=== PATIENT | female | born 1955 | race Two or more races ===

== ENCOUNTER 2016-09-12 10:50 | Inpatient (IN) | payer OTHER ==
[~2016-09-12] VITALS: Ht 157.5 cm; Wt 109.6 kg
[2016-09-16] MEDS ORDERED: LOSA25TA PO (10:57)
[2016-09-16] MEDS ORDERED: LEVO100T5 PO (11:12)
[2016-09-16] MEDS ORDERED: FISH1000 PO (11:12)
[2016-09-16] MEDS ORDERED: ESSE250T PO (11:12)
[2016-09-16] MEDS ORDERED: CYAN1TAB24 PO (11:12)
[2016-09-16] MEDS ORDERED: VITA-136 PO (11:12)
[2016-09-16] MEDS ORDERED: VITA500C18 PO (11:12)
[2016-09-16] MEDS ORDERED: GLIP5TAB8 PO (11:12)
[2016-09-16] MEDS ORDERED: FENO145T2 PO (11:12)
[2016-09-16] MEDS ORDERED: METF850T PO (11:12)
[2016-09-16] MEDS ORDERED: NOVORP2 SQ (11:12)
[2016-09-16] MEDS ORDERED: PREN29TA PO (11:13)
[2016-09-16] MEDS ORDERED: FERR325C PO (11:13)
[2016-09-18] MEDS ORDERED: ceFAZolin 2 GM PREMIX 50 ML IV SCH (06:45)
[2016-09-18] MEDS ORDERED: SCOPOLAMINE 1.5 MG PATCH T-DERMAL SCH (06:45)
[2016-09-18] MEDS ORDERED: ONDANSETRON HCL 4 MG/2 ML VIAL IV PUSH SCH (06:45)
[2016-09-18] MEDS ORDERED: metroNIDAZOLE 500 MG INJ 100 ML IV SCH (06:45)
[2016-09-18] MEDS ORDERED: LACTATED RINGER'S 1000 ML IV PRN (06:45)
[2016-09-18] MEDS ORDERED: SODIUM CHLORID 0.9% 500 ML IV PRN (06:45)
[2016-09-18] MEDS ORDERED: POVIDONE IODINE 5% (ANTISEPSIS KIT) 4 APPLICATIONS EACH NARE PRN (06:45)
[2016-09-18] MEDS ORDERED: CHLORHEXIDINE GLUCONATE 2 % 1 PACK (2 CLOTHS) TOPICAL PRN (06:45)
[2016-09-18] MEDS ORDERED: ACETAMINOPHEN 1000 MG/100 ML VIAL IV SCH (06:45)
[2016-09-18] MEDS ORDERED: METOPROLOL TARTRATE 25 MG TAB PO PRN (06:45)
[2016-09-18] MEDS ORDERED: APREPITANT 40 MG CAP PO SCH (06:45)
[2016-09-18] MEDS ORDERED: INSULIN HUMAN REGULAR 1,000 UNITS/10 ML VIAL SQ PRN (06:45)
[2016-09-18] MEDS ORDERED: TAMO20TA6 PO (07:09)
[2016-09-18 07:13] VITALS: BP 149/69; PULSE 76; RESP 16; TEMP 98; O2SAT 98
[2016-09-18] MEDS ORDERED: MIDAZOLAM HCL 2 MG/2 ML VIAL ONE (08:38)
[2016-09-18] MEDS ORDERED: METOCLOPRAMIDE HCL 10 MG/2 ML VIAL ONE (08:38)
[2016-09-18] MEDS ORDERED: methylPREDNISolone SOD SUCC 125 MG/2 ML VIAL ONE (08:38)
[2016-09-18] MEDS ORDERED: FAMOTIDINE 20 MG/2 ML VIAL ONE (08:38)
[2016-09-18] MEDS ORDERED: BUPIVACAINE/EPINEPHRINE 0.25% 50 ML VIAL INFIL ONE (09:23)
[2016-09-18] MEDS ORDERED: METHYLENE BLUE 100 MG/10 ML VIAL NG ONE (09:42)
[2016-09-18] MEDS ORDERED: DEXTROSE 50% IN WATER 50 ML VIAL(D50) IV PUSH PRN (10:15)
[2016-09-18] MEDS ORDERED: diphenhydrAMINE HCL ELIXIR 12.5 MG/5 ML CUP PO PRN (10:15)
[2016-09-18] MEDS ORDERED: SODIUM CHLORIDE 0.9% FLUSH 10 ML FLUSH PRN (10:15)
[2016-09-18] MEDS ORDERED: ONDANSETRON HCL 4 MG/2 ML VIAL IV PRN (10:15)
[2016-09-18] MEDS ORDERED: diphenhydrAMINE HCL 50 MG/ML VIAL IV PRN (10:15)
[2016-09-18] MEDS ORDERED: ENALAPRILAT 1.25 MG/ML VIAL IV PUSH PRN (10:15)
[2016-09-18] MEDS ORDERED: NALOXONE HCL 0.4 MG/ML AMP IV PRN (10:15)
[2016-09-18] MEDS ORDERED: MORPHINE SULFATE 30 MG/30 ML PCA IV SCH (10:15)
[2016-09-18] MEDS ORDERED: ACETAMINOPHEN 325MG/HYDROcodone 7.5MG/15ML UDC PO PRN ×2 (10:15)
[2016-09-18] MEDS ORDERED: GLUCAGON 1 MG/ML VIAL OTHER PRN (10:15)
[2016-09-18] MEDS ORDERED: Post-op Orders (for Pharmacy) MISC OTHER ONE (10:15)
[2016-09-18] MEDS ORDERED: SUGAMMADEX SODIUM 200 MG/2 ML VIAL IV PUSH ONE ×2 (10:36)
[2016-09-18] MEDS ORDERED: fentaNYL CITRATE 250 MCG/5 ML AMP ONE (10:55)
[2016-09-18] MEDS ORDERED: *ONDANSETRON 4 MG VIAL PERIprocedural Use ONLY ONE (11:07)
[2016-09-18] MEDS: 1/2 NS + KCL 20 MEQ INJ 1,000 ML IV SCH ×2 (11:20→20:52)
[2016-09-18] MEDS ORDERED: *PROMETHAZINE 25 MG/ML VIAL PERIprocedural use ONLY ONE (11:27)
[2016-09-18] MEDS ORDERED: PROPOFOL 200 MG/20 ML AMP IV ONE (12:00)
[2016-09-18] MEDS ORDERED: ceFAZolin 2 GM/50 ML BAG IV ONE (12:00)
[2016-09-18] MEDS ORDERED: NEOSTIGMINE 3 MG/3 ML SYR IV ONE (12:00)
[2016-09-18] MEDS: RESP: ALBUTEROL 2.5 MG/3 ML NEB (SCH) INH ×3 (12:10→23:45)
[2016-09-18] MEDS ORDERED: *morphine SULFATE 8 MG/ML PERIprocedure ONLY ONE (12:31)
[2016-09-18] MEDS: METOCLOPRAMIDE HCL 10 MG/2 ML VIAL IV PUSH SCH ×2 (15:10→20:52)
[2016-09-18] MEDS: ENOXAPARIN SODIUM 40 MG/0.4 ML SYRINGE SQ SCH (15:15)
[2016-09-18] MEDS: metroNIDAZOLE 500 MG INJ 100 ML IV SCH ×2 (15:56→22:19)
[2016-09-18] MEDS ORDERED: DO NOT ADM ANY ANTICOAGULANT DRUGS PRN (16:00)
[2016-09-18 16:58] VITALS: BP 163/75; PULSE 85; RESP 16; TEMP 99.5; O2SAT 98
[2016-09-18] MEDS: INSULIN NovoLIN REGULAR SUPPLEMENTAL SCALE SQ SCH ×2 (17:58→22:21)
[2016-09-18 20:00] VITALS: BP 159/71; PULSE 83; RESP 18; TEMP 98.1; O2SAT 98
[2016-09-18] MEDS: SODIUM CHLORIDE 0.9% FLUSH 10 ML FLUSH IV FLUSH SCH (20:52)
[2016-09-18] MEDS: PCA - TOTAL MG MORPHINE DELIVERED PER SHIFT SCH (20:53)
[2016-09-18 21:50] VITALS: O2SAT 95
[2016-09-19] VITALS (7 sets, daily range): BP systolic 145–158; BP diastolic 64–74; PULSE 73–91; RESP 17–19; TEMP 96.6–99.3; O2SAT 93–98
[2016-09-19] MEDS: METOCLOPRAMIDE HCL 10 MG/2 ML VIAL IV PUSH SCH ×2 (03:45→09:17)
[2016-09-19] MEDS: 1/2 NS + KCL 20 MEQ INJ 1,000 ML IV SCH ×3 (03:45→17:03)
[2016-09-19] MEDS: RESP: ALBUTEROL 2.5 MG/3 ML NEB (SCH) INH ×4 (04:00→15:39)
[2016-09-19 05:41] LABS: BASOPHIL % 0.4 % (0.0-2.0); EOSINOPHIL % 0.2 % (0.0-4.0); HEMATOCRIT 34.8 % (35.0-46.0); HEMO FLAGS DIFF FINAL; LYMPH % 17.3 % (9.0-44.0); LYMPHOCYTE # 1.7 TH/MM3 (1.0-4.8); MEAN CORPUSCULAR HGB CONC 32.9 % (32.0-36.0); MONO % 9.1 % (0.0-8.0); PLATELET COUNT 250 TH/MM3 (150-450); RED BLOOD COUNT 4.09 MIL/MM3 (4.00-5.30); RED CELL DISTRIBUTION WIDTH 15.3 % (11.6-17.2); WHITE BLOOD COUNT 9.6 TH/MM3 (4.0-11.0)
[2016-09-19] MEDS: PCA - TOTAL MG MORPHINE DELIVERED PER SHIFT SCH ×2 (06:00→14:00)
[2016-09-19 06:01] LABS: BICARBONATE 23.8 MEQ/L (21.0-32.0); MAGNESIUM 1.3 MG/DL (1.5-2.5); POTASSIUM 3.7 MEQ/L (3.5-5.1)
[2016-09-19] MEDS: INSULIN NovoLIN REGULAR SUPPLEMENTAL SCALE SQ SCH ×3 (06:24→16:00)
[2016-09-19] MEDS ORDERED: PANTOPRAZOLE SOD 40 MG DELAYED RELEASE TAB PO SCH (09:00)
[2016-09-19] MEDS: SODIUM CHLORIDE 0.9% FLUSH 10 ML FLUSH IV FLUSH SCH (09:00)
[2016-09-19] MEDS: metroNIDAZOLE 500 MG INJ 100 ML IV SCH (09:17)
--- NOTE | 2016-09-19 10:02 | HHI.PR ---
Subjective Subjective Notes pt feels well mild epigastric pain, tolerating liquids, oob Objective Vitals/I&O Vital Signs Date Time Temp Pulse Resp B/P Pulse Ox O2 Delivery O2 Flow Rate FiO2 09/19/16 08:17 98 09/19/16 08:00 98.6 77 17 158/74 09/18/16 21:50 21 09/18/16 16:15 Nasal Cannula 2 Labs Laboratory Tests Test 09/19/16 04:59 White Blood Count 9.6 Red Blood Count 4.09 Hemoglobin 11.4 Hematocrit 34.8 Mean Corpuscular Volume 85.0 Mean Corpuscular Hemoglobin 28.0 Mean Corpuscular Hemoglobin 32.9 Concent Red Cell Distribution Width 15.3 Platelet Count 250 Mean Platelet Volume 8.2 Neutrophils (%) (Auto) 73.0 Lymphocytes (%) (Auto) 17.3 Monocytes (%) (Auto) 9.1 Eosinophils (%) (Auto) 0.2 Basophils (%) (Auto) 0.4 Neutrophils # (Auto) 7.0 Lymphocytes # (Auto) 1.7 Monocytes # (Auto) 0.9 Eosinophils # (Auto) 0.0 Basophils # (Auto) 0.0 CBC Comment DIFF FINAL Differential Comment Sodium Level 141 Potassium Level 3.7 Chloride Level 108 Carbon Dioxide Level 23.8 Anion Gap 9 Blood Urea Nitrogen 14 Creatinine 0.63 Estimat Glomerular Filtration 97 Rate Random Glucose 151 Calcium Level 8.4 Magnesium Level 1.3 Cardiovascular: Regular Lungs: Clear Abdomen: Non-tender (soft mild ttp epigastric area, incisions c/d/i) A/P Assessment and Plan POD1 Lap sleeve gastrectomy doing well, BS controlled 151 PLAN OOB Pain control d/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
[2016-09-19] MEDS ORDERED: METOCLOPRAMIDE HCL 10 MG/2 ML VIAL IV PUSH PRN (10:15)
[2016-09-19] MEDS: ENOXAPARIN SODIUM 40 MG/0.4 ML SYRINGE SQ SCH (16:58)
--- NOTE | 2016-09-24 12:44 | MP ---
cc: KARON VALENTINE DATE OF OPERATION 09/18/2016 PREOPERATIVE DIAGNOSES Morbid obesity with a BMI of 44, complicated by essential hypertension, hyperlipidemia, type 2 diabetes. POSTOPERATIVE DIAGNOSES Morbid obesity with a BMI of 44, complicated by essential hypertension, hyperlipidemia, type 2 diabetes. PROCEDURE Laparoscopic vertical sleeve gastrectomy over a 36-Thai ViSiGi bougie. SURGEON Karon Valentine MD ARCHITECTURE DRAFTER Mynor Aldana DO ANESTHESIA General endotracheal anesthesia. ESTIMATED BLOOD LOSS Scant. FINDINGS Fatty liver. SPECIMEN None. COMPLICATIONS None. PROCEDURE IN DETAIL The patient was brought to the operating room and placed on the operating table in supine position, bilateral sequential inflation device placed on lower extremities. General anesthesia was instituted. Antibiotics was initiated. The abdomen was prepped and draped sterilely. A point 15 cm distal to the xiphoid in the midline was anesthetized with 0.25% Marcaine with epinephrine. A skin incision was made, 5-mm OptiView port placed under direct vision and pneumoperitoneum created. Under direct vision, three 5-mm left upper quadrant, a 15-mm right upper quadrant, 5-mm right upper quadrant ports placed. Prior to placement of all ports the skin and peritoneum were anesthetized with 0.25% Marcaine with epinephrine. The patient was placed in reverse Trendelenburg position left side up, the Sally-Flex retractor was placed. The left lobe of the liver was retracted. The vasculature along the greater curvature of the stomach was using harmonic scalpel starting a distance 5-cm proximal to the pylorus and carried towards the angle of His. The angle of His was taken down bluntly. Posterior ligamentous attachments were sharply . A 36-Thai ViSiGi bougie was placed at the start of the case, was placed on suction. Division of the stomach started 5 cm proximal to the pylorus and carried towards the angle of His to completely excise approximately 80% of the stomach. This was performed using an Brecon Flex stapler at the pylorus. The first firing was with a black load, followed by a green load and four gold loads. All staple loads were reinforced with SeamGuard. A distance of 2 cm was left from the angle incisura and the staple line and a distance of 1 cm left from the GE junction and the staple line. The pylorus was then occluded, methylene blue tinged saline was instilled. There was no evidence of extravasation. The gastrocolic ligament was then sutured to the posterior leaflet of the SeamGuard using a 2-0 Vicryl suture in a running manner. Bleeding points were controlled with Evicel. The excised stomach was removed from the peritoneal cavity through the 15-mm port site in an Endopouch. The fascia at the 15-mm port site was approximated with 0 Vicryl suture. The CO2 was then released, all ports were removed, all skin incisions closed with 4-0 Monocryl. The abdominal wall was cleaned. A sterile dressing was placed. The patient was awakened and taken to the recovery room. MD NAY Butler/FARIDEH /11:51 AM /12:44 PM
== END 2016-09-19 18:45 | disposition home or self-care (01) | DRG 621 ==
LOC: HSDI 09-18 05:46 → N07B 09-18 16:40
PROVIDERS: ADMIT Surgery; ATTEND Surgery
PROC: 0DB64Z3 Excision of Stomach, Percutaneous Endoscopic Approach, Vertical (ICD-10-PCS; principal; 2016-09-18 08:51)
DX: E66.01 Morbid (severe) obesity due to excess calories (principal); E11.21 Type 2 diabetes mellitus with diabetic nephropathy; K76.0 Fatty (change of) liver, not elsewhere classified; I10 Essential (primary) hypertension; E78.5 Hyperlipidemia, unspecified; Z68.41 Body mass index [BMI] 40.0-44.9, adult; E89.0 Postprocedural hypothyroidism; H91.90 Unspecified hearing loss, unspecified ear; Z79.4 Long term (current) use of insulin; Z85.3 Personal history of malignant neoplasm of breast; Z87.891 Personal history of nicotine dependence
CPT/HCPCS: 80048; 82948; 83735; 85025; 94150; 94640; 94664; J0131; J0690; J1650; J2250; J2270; J2405; J2550; J2710; J2765; J2930; J3010; J7120; J7613; J8501